=== PATIENT | female | born 1950 | race American Indian/Alaskan Native ===

== ENCOUNTER 2018-07-21 14:12 | Outpatient (CLI) | payer MEDICARE | END 2018-07-21 14:13 | disposition home or self-care (01) | LOC: C.RADIC 14:12 | DX: M54.9 Dorsalgia, unspecified (principal) ==

== ENCOUNTER 2018-07-29 10:42 | Outpatient (CLI) | payer MEDICARE | END 2018-07-29 10:43 | disposition home or self-care (01) | LOC: C.RADIC 10:42 | DX: M17.9 Osteoarthritis of knee, unspecified (principal) ==